=== PATIENT | female | born 1990 ===

== ENCOUNTER 2018-02-17 13:07 | Inpatient (IN) ==
[2018-02-17] MEDS ORDERED: MEPERIDINE 50 MG/1 ML VIAL IV PRN (13:25)
[2018-02-17] MEDS ORDERED: BUTORPHANOL 2 MG/ML VIAL IV PRN (13:25)
[2018-02-17] MEDS ORDERED: ONDANSETRON 4 MG/2 ML VIAL IV PRN (13:25)
[2018-02-17 13:46] LABS: Basophils # 0.1 10*3/uL (0.0-0.2); Basophils % 0.5 % (0.0-0.8); Eosinophils % 0.4 % (0.00-10.9); Hematocrit 36.4 VOL% (35.7-47.0); Hemoglobin 12.3 GM/DL (12.0-16.0); Immature Granulocytes % 0.4 %; Immature Granulocytes Absolute 0.04 #; Lymphocytes # 1.6 10*3/uL (1.4-4.0); Lymphocytes % 15.9 % (21.3-54.2); Mean Corpuscular HGB Conc 33.8 GM/DL (32-36); Mean Corpuscular Hemoglobin 30 PG (27-34); Mean Corpuscular Volume 87.7 FL (87-102); Mean Platelet Volume 10.1 FL (9.6-12.0); Monocytes # 0.6 10*3/uL (0.11-0.8); Monocytes % 5.7 % (1.7-12.7); Neutrophils # 7.6 10*3/uL (1.4-7.4); Neutrophils % 77.1 % (38.7-73.9); Platelet Count 239 T/CUMM (130-400); Red Blood Count 4.15 MC/CUMM (3.8-5.5); Red Cell Distribution Width 14.4 % (9.3-17.3); White Blood Count 9.8 T/CUMM (4-12)
[2018-02-17 14:21] LABS: Albumin 2.6 G/DL (3.4-5.0); Bilirubin,Total 0.4 MG/DL (0.2-1.0); Calcium 8.4 MG/DL (8.5-10.1); Osmolality,Calculated 272.7 MOS/KG (273-304); Potassium 3.9 MMOL/L (3.5-5.1); Total Protein 6.5 G/DL (6.4-8.3)
[2018-02-18] MEDS: LACTATED RINGERS 1,000 ML IV SCH ×3 (01:51→15:29)
[2018-02-18] MEDS ORDERED: OXYTOCIN/LR 20 UNIT/1,000 ML BAG IV SCH (08:30)
[2018-02-18] MEDS ORDERED: CITRIC ACID/SODIUM CITRATE 30 ML UDCUP PO ONE (09:01)
[2018-02-18] MEDS ORDERED: ONDANSETRON 4 MG/2 ML VIAL IV ONE (09:01)
[2018-02-18] MEDS ORDERED: FAMOTIDINE 20 MG/2 ML VIAL IV ONE (09:01)
[2018-02-18] MEDS ORDERED: PROMETHAZINE 25 MG/1 ML VIAL IM ONE (09:01)
[2018-02-18] MEDS ORDERED: hydrOXYzine HCL 25 MG/1 ML VIAL IM PRN (09:01)
[2018-02-18] MEDS ORDERED: ePHEDrine 50 MG/ML AMP IV PRN (09:01)
[2018-02-18] MEDS ORDERED: LACTATED RINGERS 1,000 ML IV ONE (09:01)
[2018-02-18] MEDS ORDERED: diphenhydrAMINE 50 MG/1 ML VIAL IV PRN ×2 (09:01)
[2018-02-18] MEDS ORDERED: fentaNYL 2 MCG/ROPIV 0.2% EPID 150 ML EPIDURAL SCH (09:30)
[2018-02-18] MEDS ORDERED: CLINDAMYCIN INJ 900 MG in PREMIX 1 EACH IV ONE (16:34)
[2018-02-18 17:29] LABS: Cord Arterial Blood HCO3 17.3 MMOL/L
[2018-02-18 17:30] LABS: Cord Venous Blood HCO3 22.3 MMOL/L; Cord Venous Blood PCO2 49.2 MMHG; Cord Venous Blood PO2 19.2 MMHG
[2018-02-18] MEDS ORDERED: LACTATED RINGERS 1,000 ML IV SCH (17:30)
[2018-02-18] MEDS ORDERED: RHO(D) IMMUNE GLOBULIN 300 MCG SYRINGE IM ONE (17:30)
[2018-02-18] MEDS ORDERED: OXYTOCIN/LR 20 UNIT/1,000 ML BAG IV ONE (17:30)
[2018-02-18] MEDS ORDERED: ACETAMINOPHEN 325 MG TABLET PO PRN (17:30)
[2018-02-18] MEDS ORDERED: IBUPROFEN 800 MG TABLET PO PRN (17:30)
[2018-02-18] MEDS ORDERED: ONDANSETRON 4 MG/2 ML VIAL IV PRN (17:30)
[2018-02-18] MEDS ORDERED: MORPHINE 10 MG/10 ML VIAL ONE (17:38)
[2018-02-19] MEDS: CLINDAMYCIN INJ 900 MG in PREMIX 1 EACH IV SCH ×2 (01:30→10:03)
[2018-02-19 02:15] LABS: Basophils % 0.2 % (0.0-0.8); Hematocrit 34.8 VOL% (35.7-47.0); Hemoglobin 11.5 GM/DL (12.0-16.0); Immature Granulocytes % 0.5 %; Immature Granulocytes Absolute 0.08 #; Lymphocytes # 1.3 10*3/uL (1.4-4.0); Lymphocytes % 7.8 % (21.3-54.2); Mean Corpuscular Hemoglobin 29 PG (27-34); Mean Corpuscular Volume 88.8 FL (87-102); Mean Platelet Volume 10.2 FL (9.6-12.0); Monocytes # 0.9 10*3/uL (0.11-0.8); Monocytes % 5.5 % (1.7-12.7); Neutrophils # 14.2 10*3/uL (1.4-7.4); Platelet Count 212 T/CUMM (130-400); Red Blood Count 3.92 MC/CUMM (3.8-5.5); Red Cell Distribution Width 14.6 % (9.3-17.3); White Blood Count 16.5 T/CUMM (4-12)
[2018-02-19] MEDS: DOCUSATE SODIUM 100 MG CAPSULE PO SCH ×3 (06:26→21:07)
[2018-02-19 09:24] LABS: Basophils % 0.2 % (0.0-0.8); Hematocrit 32.3 VOL% (35.7-47.0); Hemoglobin 10.6 GM/DL (12.0-16.0); Immature Granulocytes % 0.6 %; Immature Granulocytes Absolute 0.08 #; Lymphocytes # 1.2 10*3/uL (1.4-4.0); Lymphocytes % 8.7 % (21.3-54.2); Mean Corpuscular HGB Conc 32.8 GM/DL (32-36); Mean Corpuscular Hemoglobin 29 PG (27-34); Mean Corpuscular Volume 89.5 FL (87-102); Mean Platelet Volume 10.3 FL (9.6-12.0); Monocytes # 0.6 10*3/uL (0.11-0.8); Monocytes % 3.9 % (1.7-12.7); Neutrophils # 12.4 10*3/uL (1.4-7.4); Neutrophils % 86.6 % (38.7-73.9); Platelet Count 196 T/CUMM (130-400); Red Blood Count 3.61 MC/CUMM (3.8-5.5); Red Cell Distribution Width 14.7 % (9.3-17.3); White Blood Count 14.3 T/CUMM (4-12)
[2018-02-19] MEDS: MULTIVITAMIN (PRENATAL) TABLET PO SCH (10:00)
[2018-02-19] MEDS: SIMETHICONE CHEW 80 MG TABLET PO PRN ×2 (10:03→21:07)
[2018-02-19] MEDS: MAGNESIUM HYDROXIDE SUSP 30 ML UDCUP PO PRN ×2 (10:03→21:07)
[2018-02-20] MEDS: MULTIVITAMIN (PRENATAL) TABLET PO SCH (08:23)
[2018-02-20] MEDS: MAGNESIUM HYDROXIDE SUSP 30 ML UDCUP PO PRN ×2 (08:23→19:18)
[2018-02-20] MEDS: DOCUSATE SODIUM 100 MG CAPSULE PO SCH ×3 (08:23→21:34)
[2018-02-20] MEDS: SIMETHICONE CHEW 80 MG TABLET PO PRN (19:18)
[2018-02-21 07:43] VITALS: BP 119/72
[2018-02-21] MEDS: DOCUSATE SODIUM 100 MG CAPSULE PO SCH (09:40)
[2018-02-21] MEDS: MULTIVITAMIN (PRENATAL) TABLET PO SCH (09:40)
== END 2018-02-21 11:15 | disposition home or self-care (01) | DRG 540 ==
LOC: N.LDOUT 13:07 → N.LD 13:09 → N.OB 02-18 20:30
PROVIDERS: ADMIT Obstetrics & Gynecology; ATTEND Obstetrics & Gynecology
PROC: LDCSECT (ICD-10-PCS; 2018-02-18 15:00)